=== PATIENT | male | born 1965 | race Caucasian/White ===

== ENCOUNTER 2016-10-31 06:18 | Emergency (ER) | payer BC, MEDICAID ==
[~2016-10-31] VITALS: Ht 177.8 cm; Wt 95.3 kg
[2016-10-31 07:27] LABS: Basophils # (auto) 0 uL; Basophils % (auto) 0.5 % (0.0-2.0); Eosinophils # (auto) 0.1 uL; Eosinophils % (auto) 1.2 % (0.0-7.0); Hematocrit 43.3 % (41.0-53.0); Hemoglobin 14.2 g/dL (13.5-17.5); Lymphocytes # (auto) 1.3 uL; Lymphocytes % (auto) 19.6 % (10.0-50.0); Mean Corpuscular Hemoglobin 30.4 pg (28.0-32.0); Mean Corpuscular Hgb Conc. 32.8 g/dL (32.0-36.0); Mean Corpuscular Volume 92.7 fL (80.0-100.0); Mean Platelet Volume 7.3 fL (7.4-10.4); Monocytes # (auto) 0.5 uL; Monocytes % (auto) 7.4 % (0.0-12.0); Neutrophils # (auto) 4.6 uL; Neutrophils % (auto) 71.3 % (37.0-80.0); Platelet Count (auto) 246 10^3/uL (140-450); Red Cell Distribution Width 14.3 % (11.6-16.0); White Blood Cell 6.4 10^3/uL (4.4-10.8)
[2016-10-31 07:47] VITALS: BP 114/68
[2016-10-31 08:13] LABS: Albumin 4.1 g/dL (3.4-5.0); BUN/Creatinine Ratio 18.6; Bilirubin, Total 0.5 mg/dL (0.2-1.0); Calcium 8.6 mg/dL (8.5-10.1); Total Protein 6.7 g/dL (6.4-8.2)
== END 2016-10-31 08:42 | disposition home or self-care (01) ==
LOC: ER 06:20
DX: M26.622 Arthralgia of left temporomandibular joint (principal); Z88.5 Allergy status to narcotic agent; Z88.6 Allergy status to analgesic agent; Q05.9 Spina bifida, unspecified
CPT/HCPCS: 36415; 80053; 85025

== ENCOUNTER 2019-07-24 18:09 | Emergency (ER) | payer BC, OTHER ==
[~2019-07-24] VITALS: Ht 177.8 cm; Wt 92.5 kg
[2019-07-24 19:01] LABS: Basophils # (auto) 0.1 uL; Basophils % (auto) 0.5 % (0.0-2.0); Eosinophils # (auto) 0.1 uL; Eosinophils % (auto) 1.1 % (0.0-7.0); Hemoglobin 14.8 g/dL (13.5-17.5); Lymphocytes # (auto) 2.5 uL; Lymphocytes % (auto) 24.4 % (10.0-50.0); Mean Corpuscular Hemoglobin 32.3 pg (28.0-32.0); Mean Corpuscular Hgb Conc. 35.1 g/dL (32.0-36.0); Monocytes # (auto) 0.7 uL; Monocytes % (auto) 7.1 % (0.0-12.0); Neutrophils # (auto) 6.9 uL; Neutrophils % (auto) 66.9 % (37.0-80.0); Nucleated Red Blood Cells % 0.1 %; Platelet Count (auto) 239 10^3/uL (140-450); Red Blood Cells 4.57 10^6/uL (4.5-5.90); Red Cell Distribution Width 13.8 % (11.8-14.3); White Blood Cell 10.3 10^3/uL (4.4-10.8)
[2019-07-24 19:14] LABS: Alanine Aminotransferase 46 U/L (16-61); Albumin 4.3 g/dL (3.4-5.0); Anion Gap 9 (5-15); Aspartate Aminotransferase 22 U/L (15-37); BUN/Creatinine Ratio 17.4; Blood Urea Nitrogen 20 mg/dL (7-18); Calcium 8.6 mg/dL (8.5-10.1); Carbon Dioxide 27 mmol/L (21-32); Chloride 104 mmol/L (98-107); GFR African American 86 mL/min; GFR Non-African American 71 mL/min; Glucose 181 mg/dL (74-106); Potassium 4.1 mmol/L (3.5-5.1); Sodium 140 mmol/L (136-145)
[2019-07-24 19:18] LABS: Alkaline Phosphatase 86 U/L (45-117); Bilirubin, Total 0.4 mg/dL (0.2-1.0); Total Protein 7.1 g/dL (6.4-8.2)
[2019-07-25 01:16] VITALS: BP 140/84
== END 2019-07-25 02:32 | disposition home or self-care (01) ==
LOC: ER 18:18
DX: R07.89 Other chest pain (principal); K21.9 Gastro-esophageal reflux disease without esophagitis; I10 Essential (primary) hypertension; Z88.6 Allergy status to analgesic agent; Z88.8 Allergy status to other drugs, medicaments and biological substances
CPT/HCPCS: 36415; 71046; 80053; 83880; 84484; 85025; 85379; 93005

== ENCOUNTER 2024-02-22 08:20 | Emergency (ER) | payer BC ==
[~2024-02-22] VITALS: Ht 177.8 cm; Wt 88.0 kg
[2024-02-22 08:49] VITALS: BP 118/99; PULSE 63; RESP 16; TEMP 97.7; O2SAT 98
[2024-02-22] MEDS: KETOROLAC TROMETH 60MG/2ML VIAL IM ONE (08:54)
[2024-02-22] MEDS ORDERED: PRED20TA2 PO (09:18)
== END 2024-02-22 09:24 | disposition home or self-care (01) ==
LOC: ER 08:20
DX: M50.10 Cervical disc disorder with radiculopathy, unspecified cervical region (principal); I10 Essential (primary) hypertension; F41.9 Anxiety disorder, unspecified; Z88.8 Allergy status to other drugs, medicaments and biological substances; Z79.899 Other long term (current) drug therapy
CPT/HCPCS: 72040; 96372; 99283; J1885

== ENCOUNTER 2025-09-05 05:12 | Emergency (ER) | payer BC, OTHER ==
[~2025-09-05] VITALS: Ht 175.3 cm; Wt 88.9 kg
[~2025-09-05 05:12] MED LIST: PRED20TA2 PO
[2025-09-05] MEDS ORDERED: METH4PAK PO (05:55)
[2025-09-05] MEDS ORDERED: TIZA-142 PO (05:55)
--- NOTE | 2025-09-05 05:56 | ED.PDOC ---
Back pain HPI HPI Comments Pt presents s/p fall with complaint of left mid back pain and left flank pain. Pt states he slipped and fell in his kitchen last night. Pt denies hitting his head and denies any other injury. Denies neck pain, chest pain, shortness of breath, difficulty breathing, numbness or weakness Chief Complaint: Back Pain Time Seen by MD: 05:20 Primary Care Provider: [facility] Reviewed Notes: Nurses Notes, Medications, Allergies Allergies: Coded Allergies: Hydromorphone (Verified Allergy, Severe, ITCHING, 06/05/14) Acetaminophen (Verified Allergy, Intermediate, ITCHING, 10/31/16) Codeine (Verified Allergy, Intermediate, ITCHING, 10/31/16) Hydrocodone (Verified Allergy, Intermediate, ITCHING, 10/31/16) Home Meds Active Scripts Methylprednisolone (Medrol Dosepak) 4 Mg Boubacar, 4 MG PO UD for 6 Days, #21 TAB UAD Prov:AMIE HAUSER [facility] 09/05/25 Tizanidine Hydrochloride (Tizanidine Hcl) 4 Mg Tab, 4 MG PO BID PRN for 6 Days, #12 TAB Prov:AMIE HAUSER [facility] 09/05/25 Prednisone (Prednisone) 20 Mg Tab, 40 MG PO DAILY, #20 TAB Prov:ROSCOE AGGARWAL 02/22/24 Information Source: Patient Mode of Arrival: Ambulatory Past Medical History PAST MEDICAL HISTORY: Anxiety, HTN Surgical History: Denies all surgeries Family History Family History: Reviewed,noncontributory to illness Social History Smoker: Non-Smoker Alcohol: Occasionally Drugs: Denies Drug Use Lives In: Home All Other Systems: Reviewed and Negative (see hpi) Physical Exam General Appearance: No Apparent Distress, Normal HEENT: Pharynx Normal Neck: Full Range of Motion, Non-Tender Respiratory: Chest Non-Tender, Lungs Clear, No Respiratory Distress, Normal Breath Sounds Cardiovascular: No Edema, No JVD, No Murmur, No Gallop, Normal Peripheral Pulses, Regular Rate/Rhythm Breast Exam: Deferred Gastrointestinal: No Organomegaly, Non Tender, No Pulsatile Mass, Normal Bowel Sounds, Soft Genitalia: Deferred Pelvic: Deferred Rectal: Deferred Extremities: Normal capillary refill, Normal range of motion, Non-tender, No pedal edema Musculoskeletal : Location: Left Extremity Location: Back (Moderate tenderness palpated over left thoracic and lumbar back musculature. No noted crepitus or step-offs along cervical thoracic and lumbar spine. Strength sensory and motion intact. Negative st raight leg raise bilateral. Positive pedal pulses) Apperance: Normal Neurologic: Alert, No Motor Deficits, Normal Affect, Normal Mood, No Sensory Deficits Cerebellar Function: Normal Reflexes: NOT DONE Skin: Dry, Normal Color, Warm Lymphatic: No Adenopathy Was a procedure done? Was a procedure done?: No Back Pain Differential Dx Differential Diagnosis: Fracture, Musculoskeletal Pain X-Ray, Labs, Meds, VS Vital Signs Date Time Temp Pulse Resp B/P (MAP) Pulse Ox O2 Delivery O2 Flow Rate FiO2 09/05/25 06:25 58 19 98 Room Air 09/05/25 06:25 97.7 58 19 100/63 (75) 98 97.7 09/05/25 05:14 97.7 62 16 97/72 100 97.7 Current Medications Medications (Trade) Dose Ordered Sig/Jesús Route Start Time Stop Time Status Last Admin Ketorolac Tromethamine (Toradol Injection) 60 mg ONCE ONCE IM 09/05/25 05:30 09/05/25 05:31 DC 09/05/25 06:26 Acetaminophen/ Hydrocodone Bitart ([place] 5/325MG Tab) 1 tab ONCE ONCE PO 09/05/25 05:30 09/05/25 05:31 DC 09/05/25 06:25 X-Ray, Labs, Meds, VS Comment Thoracic spine x-ray shows no acute fractures subluxations or osseous lesions. Patient given Toradol 60 mg IM and [place] 5 mg p.o.. Reports improvement in pain and function requesting discharge at this time. Script trial of Medrol Dosepak and muscle relaxer advised take medication as prescribed side effects discussed. Advised to alternate between ice and heat. Advised to rest. Advised to follow up with PCP in 2-3 days as necessary consider further treatments such as MRI, physical therapy, or pain managment referral if symptoms persist. Advised on ER return precautions for increasing pain, numbness, weakness, loss of bowel bladder control or saddle anesthesia. Patient indicates understanding agrees with discharge plan of care. Images Reviewed?: Images reviewed and evaluated by me Time of 1ST Reevaluation: 05:20 Reevaluation 1ST: Unchanged Reevaluation 2ND: Improved Patient Education/Counseling: Diagnosis, Treatment, Need For Follow Up Family Education/Counseling: No Family Present SEPSIS Sepsis Screen Date sepsis recognized/suspect: Sep 05, 2025 Time Sepsis recognized/suspect: 05 Recent Procedure: No On Antibiotic Therapy: No Respiratory Rate >20: No Heart Rate >90: No Temp<36 C (96.8 F) or >38.3 C: No SBP <90 or MAP <65 mmHG: No New Acute Mental Status Change: No Is the patient on CPAP, BIPAP,: No Physician Orders Spine Thoracic 2view (09/05/25 05:24) Lumbar Spine 3 View (09/05/25 06:04) Vital Signs Date Time Temp Pulse Resp B/P (MAP) Pulse Ox O2 Delivery O2 Flow Rate FiO2 09/05/25 06:25 58 19 98 Room Air 09/05/25 06:25 97.7 58 19 100/63 (75) 98 97.7 09/05/25 05:14 97.7 62 16 97/72 100 97.7 Departure 1 Departure Time of Disposition: 08:38 Impression: Primary Impression: Strain of muscle and tendon of back wall of thorax, initial encounter Additional Impressions: Musculoskeletal pain Lumbar sprain Qualified Codes: S33.5XXA - Sprain of ligaments of lumbar spine, initial encounter Disposition: 01 HOME / SELF CARE / HOMELESS Condition: Stable e-Prescriptions Methylprednisolone (Medrol Dosepak) 4 Mg Boubacar 4 MG PO UD for 6 Days, #21 TAB UAD Prov: AMIE HAUSER 09/05/25 Tizanidine Hydrochloride (Tizanidine Hcl) 4 Mg Tab 4 MG PO BID PRN for 6 Days, #12 TAB Prov: AMIE HAUSER 09/05/25 Discharged With: Self Critical Care Note Critical Care Time?: No Stability Stability form required: No AMIE HAUSER Sep 05, 2025 05:56 JULIAN HARRIS MD Sep 05, 2025 08:38
--- NOTE | 2025-09-05 06:08 | DVH ---
MEDICAL RECORDS NUMBER: [id number] PROCEDURE: XY SPINE THORACIC 2VIEW Date: 09/05/2025 05:25 AM HISTORY: s/p fall injury COMPARISON: None FINDINGS: Alignment is maintained. Anterior vertebral body heights are maintained. No fracture dislocation or other abnormality is seen. Diffuse mild degenerative changes are noted. IMPRESSION: 1. No acute process is seen. Note: Nondisplaced or minimally displaced fractures may be present but not evident. If clinical concern persists, CT of the spine is recommended as a more sensitive evaluation for fracture.
[2025-09-05 06:25] VITALS: BP 100/63; PULSE 58; RESP 19; TEMP 97.7; O2SAT 98
[2025-09-05] MEDS: HYDROcodone-ACET 5/325MG TAB PO ONE (06:25)
[2025-09-05] MEDS: KETOROLAC TROMETH 60MG/2ML VIAL IM ONE (06:26)
--- NOTE | 2025-09-05 06:33 | DVH ---
MEDICAL RECORDS NUMBER: [id number] PROCEDURE: XY LUMBAR SPINE 3 VIEW Date: 09/05/2025 06:03 AM HISTORY: Status post fall low back pain COMPARISON: None Findings/impression: Alignment is maintained. Minor degenerative changes are seen diffusely. Some facet arthropathy is noted. The bones are somewhat osteopenic. Slight loss of height of the anterior body of L5 is of questionable chronicity. MRI may be helpful. Note: Nondisplaced or minimally displaced fractures may be present but not evident. If clinical concern persists, CT of the spine is recommended as a more sensitive evaluation for fracture.
== END 2025-09-05 08:59 | disposition home or self-care (01) ==
LOC: ER 05:12
DX: S29.012A Strain of muscle and tendon of back wall of thorax, initial encounter (principal); S33.5XXA Sprain of ligaments of lumbar spine, initial encounter; I10 Essential (primary) hypertension; Z88.5 Allergy status to narcotic agent; W01.0XXA Fall on same level from slipping, tripping and stumbling without subsequent striking against object, initial encounter; Y92.000 Kitchen of unspecified non-institutional (private) residence as the place of occurrence of the external cause; Y93.89 Activity, other specified; Y99.8 Other external cause status
CPT/HCPCS: 72070; 72100; 96372; 99284; J1885